=== PATIENT | male | born 1995 | race Caucasian/White ===

== ENCOUNTER 2018-05-31 06:20 | Day surgery (SDC) | payer OTHER ==
[2018-05-29 15:47] VITALS: Ht 182.9 cm; Wt 85.1 kg
--- NOTE | 2018-05-30 16:23 | HP ---
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 Despite successfully treating his external condyloma with a topical agent, his internal condyloma persist. We discussed the cause of condyloma (HPV) and that there was both "low-risk" and "high risk" variants of the virus. In addition, we discussed his treatment options. He has elected to have his warts removed surgically with the plan to send a specimen for HPV subtyping. We discussed the details of the procedure as well as its risks and benefits. Informed consent obtained. HPI/ROS Admit Date/Time Admit Date/Time 05/31/18 Hx of Present Illness Mr. Georges reports that he "feels bumps" near his anus that he thinks are warts. He was prescribed a topical cream (he is uncertain of the name) that he applied on the outside. This seemed to help the external warts, but he feels that there are still warts on the inside. He denies any pain or bleeding. He tends to have a daily BM that is easy. He has never had a colonoscopy. He denies any family history of colorectal cancer. He had a STD screening last week and he is uncertain of the result. ROS Constitutional: The patient denied fever and chills. Eyes: The patient complained of blurred vision (reading glasses). Ears/Nose/Throat/Neck: The patient denied hearing loss and dysphagia. Cardiovascular: The patient denied chest pain, chest pressure and palpitations. Respiratory: The patient denied cough and dyspnea. Gastrointestinal: The patient complained of rectal mass but denied nausea, v omiting, diarrhea, constipation, rectal bleeding, rectal pain and rectal itching. Genitourinary/Nephrology: The patient denied dysuria, nocturia and hematuria. Neurologic: The patient denied headache, seizure and tremor. Hematologic/Lymphatic: The patient denied easy bruising, easy bleeding and prolonged bleeding. PMH/Family/Social Past Medical History Medical History: no pertinent history Medications None Coded Allergies: No Known Allergies (Verified Allergy, Unknown, 05/29/18) Past Surgical History Past Surgical Hx: no surgical history Family History Significant Family History: no pertinent family hx Social History Alcohol Use: occasionally Smoking Status: Never smoker Drug Use: marijuana Exam/Review of Systems Exam Exam PE: Constitutional general appearance overall: well nourished and well developed Eyes pupils and irises overall: pupils equal, round, reactive to light and accomodation Ears/Nose/Throat lips/teeth/gingiva overall: benign lips, normal dentition and benign gingiva Neck inspection of neck overall: normal size, normal appearance and no masses Respiratory auscultation overall: breath sounds clear bilaterally respiratory effort/rhythm overall: no retractions and normal rate Cardiovascular auscultation of heart overall: regular rate, normal heart sounds and no murmurs inspection of pedal pulses overall: strong, equal bilaterally extremities overall: no edema and no clubbing Abdomen abdominal exam overall: no tenderness percussion: a normal exam rectal exam inspection: Normal appearing perianal skin sphincter tone: a normal exam palpation: condyloma muliple small condyloma palpated at proximal anal canal ANOSCOPIC EXAM condyloma multiple small condyloma at dentate line circumferentially and Grade 1 internal hemorrhoids Musculoskeletal gait and station overall: normal gait and normal station Neurologic mental status overall: alert and oriented Psychiatric orientation/consciousness overall: oriented to person, place and time FRANK JONES MD May 30, 2018 16:23
[~2018-05-31] VITALS: Ht 182.9 cm; Wt 85.1 kg
[2018-05-31] VITALS (11 sets, daily range): BP systolic 105–140; BP diastolic 36–79; PULSE 56–68; RESP 13–25
[~2018-05-31 06:20] MED LIST: EMTR1TAB11 PO
[2018-05-31] MEDS ORDERED: LIDOCAINE 1% (MPF) 30 ML INJ ONE (07:44)
--- NOTE | 2018-05-31 07:57 | HPN ---
Date/Time of Note Date/Time of Note DATE: 05/31/18 TIME: 07:57 Interval H&P Admission Note Pt. seen H&P reviewed: No system changes FRANK JONES MD May 31, 2018 07:57
[2018-05-31] MEDS ORDERED: ONDANSETRON 4 MG INJ IV PRN (08:00)
[2018-05-31] MEDS ORDERED: FENTAnyl 50 MCG/ML VIAL IV PRN ×2 (08:00)
[2018-05-31] MEDS ORDERED: OXYCODONE/ACETAMINOPHEN (5/325) TAB PO PRN (08:00)
[2018-05-31] MEDS ORDERED: LABETALOL HCL 20MG INJ IV PRN (08:00)
[2018-05-31] MEDS ORDERED: METOCLOPRAMIDE 10 MG INJ IV PRN (08:00)
[2018-05-31] MEDS ORDERED: hydrALAzine 20 MG INJ IV PRN (08:00)
[2018-05-31] MEDS ORDERED: MEPERIDINE 25 MG INJ IV PRN (08:00)
[2018-05-31] MEDS ORDERED: HYDROmorphONE 1 MG/5 ML IV SYRINGE IV PRN ×2 (08:00)
[2018-05-31] MEDS ORDERED: DIPHENHYDRAMINE 50 MG INJ IV PRN (08:00)
--- NOTE | 2018-05-31 08:00 | PREAC ---
Date/Time of Note Date/Time of Note DATE: 05/31/18 TIME: 07:58 Anesthesia Eval and Record Evaluation Time Pre-Procedure Interview DATE: 05/31/18 TIME: 07:58 Age 23 Sex male NPO: 8 hrs Preoperative diagnosis Anal Condyloma Planned procedure Proctosigmoidoscopy, Fulguration of Anal Condyloma Past Medical History Past Medical History: Includes Pulm: Smoking Hx Surgery & Anesthesia Issues No known issue Meds Anticoagulation: No Beta Carmencita within 24 hr: No Reason Beta Carmencita not given: Pt. not on B-Carmencita Reported Medications Emtricitabine-Tenofovir* (Truvada*) 200-300 Mg Tablet, 1 TAB PO DAILY, TAB 05/29/18 Meds reviewed: Yes Allergies Coded Allergies: No Known Allergies (Verified Allergy, Unknown, 05/31/18) Allergies Reviewed: Yes Labs/Studies Labs Reviewed: Reviewed by anesthesiologist test: N/A Studies: ECG (n/a), CXR (n/a) Pre-procedure Exam Last vitals Vital Signs Date Temp Pulse Resp B/P (MAP) Pulse Ox O2 O2 Flow FiO2 Time Delivery Rate 05/31/18 98.5 66 18 140/60 98 Room Air 06:54 (86) Airway: Adequate mouth opening, Adequate thyromental dist Mallampati: Mallampati II Teeth: Normal Lung: Normal Heart: Normal ASA Physical Status ASA physical status: 2 Emergency: None Planned Anesthetic General/MAC: ETT, LMA Planned Pain Management Parenteral pain med Pre-operative Attestations Prior to commencing anesthesia and surgery, the patient was re-evaluated, there was verification of: *The patient's identity *The results of appropriate recent lab work and preoperative vital signs *The above evaluation not changing prior to induction *Anesthetic plan, risk benefits, alternative and complications discussed with patient/family; questions answered; patient/family understands, accepts and wishes to proceed. RIKY XIONG MD May 31, 2018 08:00
[2018-05-31] MEDS ORDERED: MIDAZOLAM 1 MG/ML 2 ML INJ ONE (08:05)
[2018-05-31] MEDS ORDERED: ROCURONIUM 50 MG INJ ONE (08:05)
[2018-05-31] MEDS ORDERED: CEFAZOLIN 1 GM INJ ONE (08:05)
[2018-05-31] MEDS ORDERED: PROPOFOL 20 ML ONE (08:05)
[2018-05-31] MEDS ORDERED: FENTAnyl 50 MCG/ML VIAL ONE (08:05)
[2018-05-31] MEDS ORDERED: KETOROLAC 30 MG INJ ONE (08:32)
[2018-05-31] MEDS ORDERED: ONDANSETRON 4 MG INJ ONE (08:32)
[2018-05-31] MEDS ORDERED: METOCLOPRAMIDE 10 MG INJ ONE (08:32)
[2018-05-31] MEDS ORDERED: DEXAMETHASONE 4 MG/ML 5 ML INJ ONE (08:32)
[2018-05-31] MEDS ORDERED: GLYCOPYRROLATE 0.4 MG INJ ONE (08:48)
[2018-05-31] MEDS ORDERED: NEOSTIGMINE 3 MG/3 ML SYRINGE ONE (08:48)
--- NOTE | 2018-05-31 09:02 | OPR ---
Date/Time of Note Date/Time of Note DATE: 05/31/18 TIME: 09:01 Operative Report Procedure Date: May 31, 2018 Preoperative Diagnosis Anal condyloma Postoperative Diagnosis (same) Operation/Procedure Performed Excision/Fulguration of anal condyloma Proctosigmoidoscopy Surgeon see signature line Stereo Compiler n/a Anesthesia Type: general Estimated Blood Loss: minimal Transfusion none Specimen anal condyloma Grafts/Implants none Complications none Disposition: home Procedure Description (see dictated note) FRANK JONES MD May 31, 2018 09:02
--- NOTE | 2018-05-31 09:04 | NUR ---
RECEIVED FROM OR VIA [facility] S/P EXCISION FULGURATION OF ANAL CONDYLOMA, PROCTOSIGMOIDOSCOPY. DRESSING DRY AND INTACT. IV INFUSING LT. HAND # [id number] ANGIOCATH
--- NOTE | 2018-05-31 09:06 | PAC ---
Date/Time of Note Date/Time of Note DATE: 05/31/18 TIME: 09:06 Post-Anesthesia Notes Post-Anesthesia Note Last documented vital signs Vital Signs Date Temp Pulse Resp B/P (MAP) Pulse Ox O2 O2 Flow FiO2 Time Delivery Rate 05/31/18 98.5 66 18 140/60 98 Room Air 09:14 (86) Activity: WNL Respiratory function: WNL Cardiovascular function: WNL Mental status: Baseline Pain reasonably controlled: Yes Hydration appropriate: Yes Nausea/Vomiting absent: Yes IRKY XIONG MD May 31, 2018 09:06
--- NOTE | 2018-05-31 09:39 | NUR ---
REPORT GIVEN TO RAMONA LYNNE
--- NOTE | 2018-05-31 11:00 | NUR ---
PT IS S/P EXCISION OF ANAL CONDYLOMA. D/C INSTRUCTIONS AND RX GIVEN. SIDE EFFECTS OF MEDS DISCUSSED. PT PROVIDE WITH AND INSTRUCTED ON SITZ BATH. DONUT PILLOW FILLED AND GIVEN TO PT. PT OUT OF SDS VIA W/C ESCORTED BY VOLUNTEER AND ACCOMPANIED BY FRIEND.
--- NOTE | 2018-05-31 11:23 | OPR ---
DATE OF OPERATION: 05/31/2018 PREPROCEDURE DIAGNOSIS: Anal condyloma. POSTPROCEDURE DIAGNOSIS: Anal condyloma. OPERATIONS PERFORMED: 1. Excision and fulguration of anal condyloma, extensive. 2. Rigid proctosigmoidoscopy. SURGEON: Frank Wesley MD ANESTHESIA: General anesthetic with LMA. INDICATIONS FOR PROCEDURE: Mr. Georges is a 23-year-old male who presented to my office in 02/2018, complaining of internal anal condyloma. He has previously had his external anal condyloma treated, b ut he presents with residual internal condyloma. After discussing the various treatment options, he elected to proceed with excision and fulguration of his internal anal condyloma. Informed consent wa s obtained prior to the procedure. DESCRIPTION OF PROCEDURE: The patient was brought to the operating room, placed in supine position o n the operating room table. Next after successful administration of general anesthetic and placement of an LMA by the staff anesthesiologist, the patient was repositioned in the lithotomy position niecy chauhan. Next, after surgical time-out, the patient's perineum and perianal skin were prepp ed and draped in the usual sterile fashion. Following this, a digital rectal examination was perform ed. This examination revealed normal appearing perianal skin but multiple small anal condyloma circu mferentially in the proximal anal canal/distal rectum. Next, a rigid proctosigmoidoscopy was perform ed to a distance of 14 cm from the anal verge and this revealed a normal appearing rectum. The proct oscope was removed without event. Next, an anal block was performed using 1% lidocaine without epinephrine. This local anesthetic was then injected circumferentially at the anal verge. Next, once we achieved maximum anal sphincter rel axation, Marques retractor was utilized to examine the patient's anal canal and distal rectum in more detail. This examination revealed circumferential anal condyloma scattered throughout the proximal a nal canal/distal rectum. Then, using Bovie electrocautery, every condyloma was excised and/or electr ocauterized. A sample of anal condyloma was sent off as a surgical specimen, labeled anal condyloma. After examining the anal canal/distal rectum circumferentially and treating all condyloma seen, the Marques retractor was removed. Additional local anesthetic that is the 1% lidocaine was injected cir cumferentially at the anal verge once again. Next, a dry gauze was applied to the patient's perianal skin and secured with paper tape. Next, the patient was returned to the supine position. Anesthesia was discontinued. He was extubate d in the operating room without complication. He was then transferred to recovery room in stable con dition. Following the procedure, the patient was given standard post-anorectal surgery convalescence instructions as well as instructions to follow up with Dr. Wesley 1 week following discharge. He was given prescriptions for Toradol and [place] for pain. Dictated By: FRANK NEWSOME/FELICITY Conf#: [id number] DID#: [id number]
== END 2018-05-31 11:30 | disposition home or self-care (01) ==
LOC: SDS 06:20
PROVIDERS: ATTEND Colon & Rectal Surgery
DX: A63.0 Anogenital (venereal) warts (principal)
CPT/HCPCS: 45330; 46924; J0690; J1100; J1885; J2250; J2405; J2710; J2765; J3010; Z7512; Z7610; 88304